=== PATIENT | female | born 2000 | race Asian ===

== ENCOUNTER 2024-11-18 09:14 | Outpatient (AMB) | payer MEDICAID, SELFPAY ==
[2024-11-18 09:29] VITALS: BP 123/85; PULSE 88; RESP 18; TEMP 36.7; O2SAT 98; BMI 29.5
--- NOTE | 2024-11-18 09:29 | OBCLNT_ITS ---
Vital Signs 11/18/24 09:29 Height 1.57 m Height Method Stated Weight 73.085 kg Weight Measurement Method Standing Scale BMI 29.5 BP 123/85 H Blood Pressure Source Automatic Cuff Blood Pressure Location Left Upper Arm Position Sitting Respiration 18 Pulse 88 Pulse Source Monitor Temp 98.0 F Temp Source Temporal Artery Scan Pulse Oximetry (%) 98 Oxygen Delivery Method Room Air Allergies/Home Meds Allergies & Medications Allergies ibuprofen (From Motrin) Allergy (Verified 11/18/24 09:30) Medication Reconciliation vit no.95-ferrous fumarate 28 mg-folic acid 800 mcg tablet () 1 tab PO DAILY 08/02/22 [History Confirmed 11/18/24] PNV 153-FA 400 mcg-om3 35 mg-dha 25 mg-epa 5 mg-fish oil chew tablet ( Gummies) 1 tab PO QDAY 90 days #90 tabs 11/18/24 [Rx] Intake Visit Data Collection New Patient or Established: Established Patient (seen at [facility] within 3 years) Reason for Visit:: Chief Complaint First visit for , unsure of last menstrual period and gestational age Do You Feel Safe at Home: Yes Authorities Contacted: N/A PCP or OBGYN visit in last 3 months: Yes Last menstrual period: 06/22/24 Pain Present Currently: No Smoking Status Smoking Status: Never smoker Questionnaires Covid-19 Vaccine Questionnaire Has patient been vacinated for Covid-19 Have you been vacinated for Covid-19: Yes PHQ-9 PHQ-2 Over the last 2 weeks, how often have you been bothered by any of the following problems? 1. Little interest or pleasure in doing things: not at all 2. Feeling down, depressed, or hopeless: not at all Total score: 0 Depression screen completed yes Social History Living Situation History Marital Status: Single Lives With: Children Housing: Apartment Tobacco History Smoking Status: Never smoker Second Hand Smoke Exposure: No Alcohol History Alcohol Intake: Never Alcohol Intake Frequency: holidays/special occasions only Domestic Abuse History Do You Feel Safe at Home: Yes Past Medical History Past Medical History Have you ever been diagnosed with any of the following: Neurological Problems Seizures: No Cardiology Problems Congestive Heart Failure: No Respiratory Problems Chronic Obstructive Pulmonary Disease (COPD): No Genital/Urinary Problems Renal Disease: No Endocrine Problems Diabetes Mellitus Type 1: No Diabetes Mellitus Type 2: No Blood Problems Anemia: Yes Clotting Problems: No Other Problems Hospitalization: No Falls: No Blood Transfusions: No Blood Transfusion Reaction: No Anesthesia Reactions: No Chicken Pox: No Clostridium Difficile: No Cancer: No History of Present Illness HPI Narrative History of Present Illness Smita Broussard, a patient with a history of three previous C-sections, presents for her first visit. She reports uncertainty about her last menstrual period (LMP) and gestational age due to at the time of conception. The patient initially visited [facility] for confirmation but was referred elsewhere for ongoing care. She subsequently paid for a private ultrasound, which estimated her due date as April 01, suggesting she is approximately 20 weeks . However, she notes confusion about her exact gestational age and due date. Smita reports a history of complications in her previous pregnancies. Her first resulted in an emergency due to distress. The second was delivered at 35 weeks due to growth restriction. Her third resulted in a at 37 weeks after she went into spontaneous labor. The patient mentions experiencing anemia in her previous pregnancies, stating, With him, I've always got low blood. She is currently still her youngest child. Smita expresses concern about potential complications, noting that all her children are kind of short, short-winded. No other -related symptoms or concerns were reported during this visit. Medical History - Anemia during previous Surgical History - section in 2022, emergency procedure due to distress - section at 35 weeks gestation due to growth restriction - section at 37 weeks gestation due to onset of labor Social History - Children: Has three daughters and currently with a boy - Substance Use: Currently - Living Situation: Lives with children Review of Systems Cardiovascular: Positive for low blood (anemia). Respiratory: Positive for being short-winded. OB Ultrasound OB Ultrasound Gestational sac assessment: Presence, location, size, shape: Laboratory, Imaging, and Diagnostic Test Results - Ultrasound (11/18/2024): - Gestational age: 19 weeks 5 days based on head circumference - Estimated weight: 316 grams - sex: Male - Femur length: Consistent with 20 weeks gestation OB Initial Visit OB Flowsheet OB Flowsheet Initial Weight: Not Recorded Date -?-?-?-?-?-?-?-?-?-?-?-?- EGA Weight Edema CTX Effacement BP Fundal ht Pres Dilation Effacement Station Visit Note Alb Glu FHR Mov 11/18/24 -?-?-?-?-?-?-?-?-?-?-?-?- 19w 5d 73.085 kg 123/85 OBI. - Obtain records from previous pregnanci es and deliveries - Discuss risks of short interval pregna ncy including PAS - Monitor closely for signs of placental abnormalities or uterine dehiscence - Refer to maternal- medicine specreyna dunlap for comprehensive ultrasound and consultation - Order labs including NIPT and confirmation of sex - Recommend weaning from t o reduce risk of growth restriction - Follow-up appointment in 2 weeks 145 Menstrual History Menstrual reliability: approximate (month known) Flow: heavy Menstrual regularity: irregular Monthly: No Age at menarche: 14 On control pills at conception: No Date of positive home test: 07/27/24 OB History : 4 Para: 2 Hx # Pregnancies: 1 Hx Total # of Abortions (Spontaneous & Elective): 0 # of Living Children: 3 Delivery History 1st : Child's name: Clint date: 09/13/21 sex: female Gestational age at delivery (weeks): 39 Delivery type: weight (lbs): 6000 g Delivery complications: emergency c/s due to distress History of depression before or after : No 2nd : Child's name: Gayathri date: 09/19/22 Gestational age at delivery (weeks): 35 Delivery type: weight (lbs): 4000 g Delivery complications: c/s due to no growth History of depression before or after : No 3rd : Child's name: Alexandr date: 03/08/24 sex: female Gestational age at delivery (weeks): 37 Delivery type: weight (lbs): 6000 g Delivery complications: no History of depression before or after : No Infection History & Risk Evaluation History of STDs: none HIV risk evaluation: low risk Hepatitis B risk evaluation: low risk Patient or partner has history of Genital Herpes: No Varicella/chicken pox status: immunized Genetic Screening & History Genetic Screening/Teratology Counseling - Includes patient, baby's father, or anyone in either family with: 1. Patient's age 35 years or older as of estimated date of delivery: No 2. Thalassemia (Thai, Swedish, Mediterranean, or Background); MCV less than 80: No 3. Neural Tube Defect (Meningomyelocele, Spina Bifida, or Anencephaly): No 4. Congenital Heart Defect: No 5. Down Syndrome: No 6. Ranjith-Sachs (Ashkenazi Restoration, Cajun, Slovak Addison): No 7. Leonor Disease (Ashkenazi Restoration): No 8. Familial Dysautonomia (Ashkenazi Restoration): No 9. Sickle Cell Disease or Trait (): No 10. Hemophilia or other blood disorders: No 11. Muscular Dystrophy: No 12. Cystic Fibrosis: No 13. Langdon's Chorea: No 14. Mental Retardation/Autism: No 15. Other inherited genetic or chromosomal disorder: No 16. Maternal Metabolic Disorder (EG,TYPE 1 Diabetes, PKU): No 17. Patient or baby's father had a child with defects not listed above: No 18. Recurrent loss or a stillbirth: No 19. Medications (including supplements, vitamins, herbs or otc drugs)/illicit/recreational drugs/alcohol since last menstrual period: No 20. Any other: No Infection History 1. Live with someone with TB or exposed to TB: No 2. Rash or viral illness since last menstrual period: No 3. Hepatitis B,C: No Other (see comments) Source: [employer] Exam General Limitations: no limitations General Appearance: alert, in no apparent distress, comfortable, cooperative, healthy appearing, well developed and well groomed Chest Chest inspection: Present normal inspection and symmetric chest wall rise Psych Psychiatric exam: Present normal affect and normal mood Skin Skin exam: Present warm, dry, intact and normal color Assessment & Plan Diagnosis / Problem List (1) Short interval between pregnancies affecting in third trimester, antepartum: Status: Acute (2) Limited care: Status: Acute (3) Previous section: Status: Acute (4) History of poor outcome: Status: Acute (5) Supervision of high risk , unspecified, second trimester: Status: Acute Plan Smita Broussard, , presents for initial visit at approximately 20 w eeks gestation with uncertain last menstrual period (LMP) and history of 3 prior sections. Intrauterine Assessment: Patient presents for initial visit with uncertain dating due to at time of conception. Previous ultrasound at outside facility suggested due date of April 01. Today's ultrasound measurements indicate gestational age of 19 weeks 5 days based on head circumference, with femur length consistent with 20 weeks. Estimated due date calculated as April 09, 2025, with backdated LMP of July 03, 2024. anatomy survey reveals male fetus with estimated weight of 316 grams. Plan: - Refer to maternal- medicine specialist for comprehensive ultrasound and consultation - Order labs including confirmation of sex - Recommend weaning from to reduce risk of growth restriction - Follow-up appointment in 2 weeks History of 3 prior sections Assessment: Patient has history of 3 prior sections. First was an emergency due to distress. Second was performed at 35 weeks due to growth restriction. Third was performed at 37 weeks when patient presented in labor. This occurs after a short interval since last delivery in 2022. Plan: - Obtain records from previous pregnancies and deliveries - Discuss risks and benefits of repeat section versus trial of labor after (TOLAC) - Monitor closely for signs of placental abnormalities or uterine dehiscence History of anemia in Assessment: Patient reports history of anemia in previous pregnancies. Plan: - Include complete blood count (CBC) in labs - Assess need for iron supplementation based on lab results Office Procedures OB Clinic LOC & Office Proc's Nursing/Assessment Patient Status: Established Patient OB Clinic Nursing Assessment: Medication Reconciliation, Update PMH in EMR and Vital Signs OB Clinic Coordination of Care: Complex Care and Chronic Disease 1-5, Consent,records obtained, informed consent, Education Simp Pt/Fam, Lab and Imaging orders and Staff clarify orders Established Patient Charge Established Patient Point Assignment: 100 Established Patient Point Charge: EP Level 3 (80-115) Bedside Ultrasounds US Transabdominal >14 weeks at bedside: Yes
== END 2024-11-18 10:03 | disposition home or self-care (01) ==
LOC: HODSOBC 09:14
PROVIDERS: Supervising Provider Obstetrics & Gynecology; Visit Provider Obstetrics & Gynecology
DX: O09.32 Supervision of pregnancy with insufficient antenatal care, second trimester (principal); Z3A.19 19 weeks gestation of pregnancy; O09.892 Supervision of other high risk pregnancies, second trimester; O09.292 Supervision of pregnancy with other poor reproductive or obstetric history, second trimester; O34.219 Maternal care for unspecified type scar from previous cesarean delivery; Z87.59 Personal history of other complications of pregnancy, childbirth and the puerperium
CPT/HCPCS: 76805; 99213; G0463

== ENCOUNTER 2024-12-14 10:04 | Outpatient (AMB) | payer MEDICAID, SELFPAY ==
--- NOTE | 2024-12-14 10:29 | OBCLNT_ITS ---
Vital Signs 12/14/24 10:33 Height 1.57 m Height Method Stated Weight 74.899 kg Weight Measurement Method Standing Scale BMI 30.4 BP 124/83 Blood Pressure Source Automatic Cuff Blood Pressure Location Right Upper Arm Position Sitting Respiration 18 Pulse 98 Pulse Source Monitor Temp 97.8 F Temp Source Oral Pulse Oximetry (%) 97 Oxygen Delivery Method Room Air Allergies/Home Meds Allergies & Medications Allergies ibuprofen (From Motrin) Allergy (Verified 12/14/24 10:34) Medication Reconciliation vit no.95-ferrous fumarate 28 mg-folic acid 800 mcg tablet () 1 tab PO DAILY 08/02/22 [History Confirmed 11/18/24] PNV 153-FA 400 mcg-om3 35 mg-dha 25 mg-epa 5 mg-fish oil chew tablet ( Gummies) 1 tab PO QDAY 90 days #90 tabs 11/18/24 [Rx Confirmed 12/14/24] ferrous sulfate 325 mg (65 mg iron) tablet 325 mg PO BID 90 days #180 tabs 12/14/24 [Rx] Intake Visit Data Collection New Patient or Established: Established Patient (seen at [facility] within 3 years) Reason for Visit:: - Routine visit at 23 weeks and 3 days gestation Seen by Clinical Staff ONLY (RN/MA): No Drain Layer Required: No Do You Feel Safe at Home: Yes Authorities Contacted: N/A PCP or OBGYN visit in last 3 months: Yes Hx Now: Yes Are you currently on any form of Control: No Pain Present Currently: No Pain Scale Used: Irwin-Pate/Numerical Pain scale:: 0 Smoking Status Smoking Status: Never smoker Questionnaires Covid-19 Vaccine Questionnaire Has patient been vacinated for Covid-19 Have you been vacinated for Covid-19: No PHQ-9 PHQ-2 Over the last 2 weeks, how often have you been bothered by any of the following problems? 1. Little interest or pleasure in doing things: not at all 2. Feeling down, depressed, or hopeless: not at all Total score: 0 PHQ-9 3. Trouble falling or staying asleep, or sleeping too much: Not at all 4. Feeling tired or having little energy: Not at all 5. Poor appetite or overeating: Not at all 6. Feeling bad about yourself - or that you are a failure or have let yourself or your family down: Not at all 7. Trouble concentrating on things, such as reading the newspaper or watching television: Not at all 8. Moving or speaking so slowly that other people could have noticed? - Or the opposite - being so fidgety or restless that you have been moving around a lot more than usual: not at all 9. Thoughts that you would be better off or of hurting yourself in some way: Not at all Total score: 0 Source: Developed by Drs. Durga Brand, Luh Barrios, Carl Mckeon and colleagues, with an educational evonne from [employer]. 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 - Relevant obstetrical history: - History of twins - Short interval from last - 3 previous C-sections: - 2022 due to distress - At 35 weeks due to growth restrictions - At 37 weeks due to labor/PROM - First visit was at 19 weeks and 5 days - Slightly anemic, requiring iron supplementation No contractions/ LOF/VB, reports good FM No REZA/VC/RUQ/Epig pain Care OB Visit Log OB Flowsheet Initial Weight: Not Recorded Date -?-?-?-?-?-?-?-?-?-?-?-?- EGA Weight BP Alb Glu CTX Pres Fundal ht FHR Mov Dilation Station Effacement Hx Notes Visit Note 11/18/24 -?-?-?-?-?-?-?-?-?-?-?-?- 19w 5d 73.085 kg 123/85 145 OBI. - Obtain records from previous pregnanci es and deliveries - Discuss risks of short interval pregna ncy including PAS - Monitor closely for signs of placental abnormalities or uterine dehiscence - Refer to maternal- medicine speci alist for comprehensive ultrasound and consultation - Order labs including NIPT and confirmation of sex - Recommend weaning from t o reduce risk of growth restriction - Follow-up appointment in 2 weeks 12/14/24 -?-?-?-?-?-?-?-?-?-?-?-?- 23w 3d 74.899 kg 124/83 150 Smita Broussard, at 23w3d, presents for routine care. History includes 3 prior C-sections (2022 for distress, at 35w for FGR, and at 37w for labor/PROM), short interval , prior twin gestation, and current mild anemia. First visit was at 19w5d. No current complaints. Denies CTX/LOF/VB. Reports good movement. Hgb 10.3, Hct 34.1. UA shows cloudy urine with occult blood and WBC esterase, but no nitrites. Plan: Provide lab order for 1-hour glucose scr een and genetic testing including sex Schedule follow-up visit in 4 weeks Refer to [facility] for formal ul trasound and due date confirmation Prescribe iron supplementation for anemi a Instruct patient to create [facility] zoe l or request emailed results from lab Routine education provided, damaso giles labor precautions, diet, and hydration SÁNCHEZ Calculator Estimated Delivery Date Method Current WG Current Estimate 04/09/25 LMP (Certain) 24w 4d Other Estimates 04/09/25 Ultrasound #1 24w 4d Exam General General Appearance: alert, in no apparent distress and healthy appearing Head Head exam: atraumatic Neck Neck exam: Present normal inspection and trachea midline Chest Chest inspection: Present normal inspection and symmetric chest wall rise External exam: Present normal external exam; Absent tenderness Neuro Neurological exam: Present oriented X3 Psych Psychiatric exam: Present normal affect and normal mood Office Procedures OB Clinic LOC & Office Proc's Nursing/Assessment Patient Status: Established Patient OB Clinic Nursing Assessment: Medication Reconciliation, Update PMH in EMR and Vital Signs OB Clinic Coordination of Care: Complex Care and Chronic Disease 1-5, Consent,records obtained, informed consent, Education Simp Pt/Fam, Lab and Imaging orders, Results/Orders obtained and Staff clarify orders Special Needs: Heart tones Miscellaneous Interventions: Blood/Urine Collection Established Patient Charge Established Patient Point Assignment: 165 Established Patient Point Charge: EP Level 5 (160-above) Assessment & Plan Diagnosis / Problem List (1) Short interval between pregnancies affecting in third trimester, antepartum: Status: Acute (2) History of poor outcome: Status: Acute (3) Supervision of high risk , unspecified, second trimester: Status: Acute (4) Anemia affecting in second trimester: Status: Acute Plan Problem List - , 23 weeks and 3 days gestation - 4, para 2-1-0-1-1-3 - History of multiple sections - History of labor - History of premature rupture of membranes - History of growth restriction - Iron deficiency anemia Assessment - 4 para [id number] at 23 weeks and 3 days gestation - History of 3 previous C-sections (2022 due to distress, 35 weeks due to growth restrictions, 37 weeks due to labor/PROM) - Short interval - Mild anemia (Hemoglobin 10.3, hematocrit 34.1) - Urinalysis showing occult blood with WBC esterase in cloudy appearance, no nitrites - History of twin Plan - Provide lab slip for glucose test (diabetes screening) and genetic testing, including gender determination - Schedule follow-up appointment in 4 weeks - Refer to [facility] for official ultrasound to confirm due date - Prescribe iron tablets for anemia - Instruct patient to create [employer] portal for viewing results or request lab to email results Educated the patient on labor signs, including regular contractions, lower back pain, and changes in vaginal discharge. Advised avoiding heavy lifting and getting adequate rest. Instructed to contact the office immediately if any signs occur. Discussed the importance of a balanced diet rich in folic acid, iron, and calcium, and provided a list of recommended and to-avoid foods. Emphasized avoiding high-sugar foods to reduce gestational diabetes risk. Encouraged hydration and frequent, small meals for energy..
[2024-12-14 10:33] VITALS: BP 124/83; PULSE 98; RESP 18; TEMP 36.6; O2SAT 97; BMI 30.4
[2024-12-14 16:06] LABS: Bilirubin,Urine Clinitek Negative (Negative); Blood,Urine Clinitek 2+ (Negative); Glucose, Urine Clinitek Negative (Negative); Ketones,Urine Clinitek Negative (Negative); Leukocyte Esterase,Urine Clin 1+ (Negative); Nitrite,Urine Clinitek Negative (Negative); PH,Urine Clinitek 6.5 (5.0-7.0); Protein,Urine Clinitek Negative (Neg - Trace); Specific Gravity,Urine Clin >= 1.030 (1.001-1.030); Urobilinogen,Urine Clinitek 0.2 mg/dL (0.0-1.0)
== END 2024-12-14 11:01 | disposition home or self-care (01) ==
LOC: HODSOBC 10:04
PROVIDERS: Advanced Practice Midwife; Supervising Provider Obstetrics & Gynecology; Visit Provider Obstetrics & Gynecology
DX: O09.212 Supervision of pregnancy with history of pre-term labor, second trimester (principal); O09.892 Supervision of other high risk pregnancies, second trimester; O09.292 Supervision of pregnancy with other poor reproductive or obstetric history, second trimester; O34.219 Maternal care for unspecified type scar from previous cesarean delivery; O99.012 Anemia complicating pregnancy, second trimester; D50.9 Iron deficiency anemia, unspecified; Z3A.23 23 weeks gestation of pregnancy
CPT/HCPCS: 81001; 99215; G0463

== ENCOUNTER 2025-01-11 15:01 | Outpatient (AMB) | payer MEDICAID, SELFPAY ==
--- NOTE | 2025-01-11 15:21 | OBCLNT_ITS ---
Allergies/Home Meds Allergies & Medications Allergies ibuprofen (From Motrin) Allergy (Verified 01/11/25 15:30) Medication Reconciliation vit no.95-ferrous fumarate 28 mg-folic acid 800 mcg tablet () 1 tab PO DAILY 08/02/22 [History Confirmed 01/11/25] PNV 153-FA 400 mcg-om3 35 mg-dha 25 mg-epa 5 mg-fish oil chew tablet ( Gummies) 1 tab PO QDAY 90 days #90 tabs 11/18/24 [Rx Confirmed 01/11/25] ferrous sulfate 325 mg (65 mg iron) tablet 325 mg PO BID 90 days #180 tabs 12/14/24 [Rx Confirmed 01/11/25] Intake Visit Data Collection New Patient or Established: Established Patient (seen at [facility] within 3 years) Reason for Visit:: OBC Seen by Clinical Staff ONLY (RN/MA): No Apartment Leasing 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 1. Little interest or pleasure in doing things: not at all 2. Feeling down, depressed, or hopeless: not at all Total score: 0 PHQ-9 3. Trouble falling or staying asleep, or sleeping too much: Not at all 4. Feeling tired or having little energy: Not at all 5. Poor appetite or overeating: Not at all 6. Feeling bad about yourself - or that you are a failure or have let yourself or your family down: Not at all 7. Trouble concentrating on things, such as reading the newspaper or watching television: Not at all 8. Moving or speaking so slowly that other people could have noticed? - Or the opposite - being so fidgety or restless that you have been moving around a lot more than usual: not at all 9. Thoughts that you would be better off or of hurting yourself in some way: Not at all Total score: 0 If you checked off any problems, how difficult have these problems made it for you to do your work, take care of things at home, or get along with other people?: not difficult at all Source: Developed by Drs. Durga Brand, Luh Barrios, Carl Mckeon and colleagues, with an educational evonne from [employer]. 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 Patient has a history of prior delivery. No contractions, LOF, VB and reports good FM. Denies REZA, VC, and epigastric pain. - Smita Broussard is a 4 para 2103 presenting for routine care at 27 weeks and 3 days gestation, with an estimated due date of April 09, 2025. - Last visit was 4 weeks ago, patient reported doing well at that time. - Relevant medical history: - History of twin gestation in the past - Late presentation to care for current (at 19 weeks) - Patient reports: - No new symptoms or concerns mentioned - Appropriate weight gain for gestational age - Adherence to care plan: - Completed genetic testing as ordered - Awaiting results of one-hour glucose tolerance test - Upcoming growth ultrasound scheduled for January 28, 2025 - Patient expressed concern about growth, referencing a previous where the baby wasn't growing properly Care OB Visit Log OB Flowsheet Initial Weight: Not Recorded Date -?-?-?-?-?-?-?-?-?-?-?-?- EGA Weight BP Alb Glu CTX Pres Fundal ht FHR Mov Dilation Station Effacement Hx Notes Visit Note 11/18/24 -?-?-?-?-?-?-?-?-?-?-?-?- 19w 5d 73.085 kg 123/85 145 OBI. - Obtain records from previous pregnanci es and deliveries - Discuss risks of short interval pregna ncy including PAS - Monitor closely for signs of placental abnormalities or uterine dehiscence - Refer to maternal- medicine speci ali for comprehensive ultrasound and consultation - Order labs including NIPT and confirmation of sex - Recommend weaning from t o reduce risk of growth restriction - Follow-up appointment in 2 weeks 12/14/24 -?-?-?-?-?-?-?-?-?-?-?-?- 23w 3d 74.899 kg 124/83 150 Smita Broussard, at 23w3d, presents for routine care. History includes 3 prior C-sections (2022 for distress, at 35w for FGR, and at 37w for labor/PROM), short interval , prior twin gestation, and current mild anemia. First visit was at 19w5d. No current complaints. Denies CTX/LOF/VB. Reports good movement. Hgb 10.3, Hct 34.1. UA shows cloudy urine with occult blood and WBC esterase, but no nitrites. Plan: Provide lab order for 1-hour glucose scr een and genetic testing including sex Schedule follow-up visit in 4 weeks Refer to [facility] for formal ul trasound and due date confirmation Prescribe iron supplementation for anemi a Instruct patient to create [facility] zoe l or request emailed results from lab Routine education provided, inc luding labor precautions, diet, and hydration 01/11/25 -?-?-?--?-?-?-?-?-?-?-?-?- 27w 3d 155 @27w3d, hx of twin gestation, late to care (19w), prior C/S, concerned for growth. Genetic screen neg, fetus male. Awaiting 1hr GTT and growth US 01/28. Plan: f/u in 4wks, monitor growth q4wks, plan C/S pending US findings. SÁNCHEZ Calculator Estimated Delivery Date Method Current WG Current Estimate 04/09/25 LMP (Certain) 27w 5d Other Estimates 04/09/25 Ultrasound #1 27w 5d Office Procedures OB Clinic LOC & Office Proc's Nursing/Assessment Patient Status: Established Patient OB Clinic Nursing Assessment: Medication Reconciliation, Update PMH in EMR and Vital Signs OB Clinic Coordination of Care: Education Complex Pt/Fam, Consent,records obtained, informed consent, Lab and Imaging orders and Staff clarify orders Special Needs: Heart tones Established Patient Charge Established Patient Point Assignment: 110 Established Patient Point Charge: EP Level 3 (80-115) Assessment & Plan Diagnosis / Problem List (1) Anemia affecting in second trimester: Status: Acute (2) Supervision of high risk , unspecified, second trimester: Status: Acute (3) History of poor outcome: Status: Acute (4) Short interval between pregnancies affecting in third trimester, antepartum: Status: Acute Plan Problem List - Twin gestation (history) - , third trimester - Late presentation to care - Previous section Assessment at 27 weeks and 3 days gestation with SÁNCHEZ 04/09/2025. Patient presented late for care at 19 weeks. History of twin gestation in the past. Recent genetic testing results negative for trisomies, fetus identified as male. One-hour glucose tolerance test ordered at last visit, results pending. Awaiting biometric ultrasound to assess growth and placental position, particularly important due to patient's history of growth issues in previous . Patient inquired about weight gain, which is reported as appropriate for gestational age. Previous section noted, with fresh scar potentially causing discomfort. Plan - Schedule follow-up appointment in 4 weeks (around February 02) - Await results of pending one-hour glucose tolerance test - Await bariatric ultrasound scheduled for January 28 to confirm placental position and rule out placenta previa - Plan for after ultrasound results are reviewed - Continue monitoring growth through ultrasounds every 4 weeks 1. Progress Reviewed gestational age, growth, and heart rate. Planned frequent visits (every 2 weeks until 36 weeks, then weekly). 2. Instructed patient to monitor movements and report decreases immediately. 3. Testing Counseled on routine third-trimester labs per guidelines. Discussed potential need for ultrasound or monitoring based on risk factors. 4. Preeclampsia Precaution Educated on preeclampsia signs: severe headache, vision changes, right upper quadrant pain, sudden swelling. Advised urgent reporting of symptoms and discussed blood pressure monitoring if high risk. 5. Labor Precautions Reviewed labor signs: regular contractions, pelvic pressure, back pain, bleeding, or fluid leakage. Instructed to seek immediate care for these symptoms. 6. Lifestyle and Delivery Preparation Reinforced vitamins, nutrition, and safe activity. Discussed plan, pain management, and . Advised on labor preparation (e.g., hospital bag) and expectations. 7. Psychosocial Support Assessed emotional well-being and offered resources for mental health or parenting support.
== END 2025-01-11 15:46 | disposition home or self-care (01) ==
LOC: HODSOBC 15:01
PROVIDERS: Supervising Provider Obstetrics & Gynecology; Visit Provider Obstetrics & Gynecology
DX: O09.292 Supervision of pregnancy with other poor reproductive or obstetric history, second trimester (principal); O34.219 Maternal care for unspecified type scar from previous cesarean delivery; O09.892 Supervision of other high risk pregnancies, second trimester; O99.012 Anemia complicating pregnancy, second trimester; O09.212 Supervision of pregnancy with history of pre-term labor, second trimester; Z3A.27 27 weeks gestation of pregnancy; Z87.59 Personal history of other complications of pregnancy, childbirth and the puerperium
CPT/HCPCS: 99213; G0463

== ENCOUNTER 2025-01-29 22:58 | Observation (INO) | payer MEDICAID, SELFPAY ==
[2025-01-29 22:04] VITALS: BMI 70.8
[2025-01-29 22:27] VITALS: BP 132/85; BP 136/90; PULSE 97; RESP 20; TEMP 37.1; O2SAT 95
--- NOTE | 2025-01-29 22:46 | EDNOTE_ITS ---
<Statement entered by Jenifer Sarmiento MD - 01/29/25 23:26> As co-signing physician, I was present and available for consult prn. I concur with the plan and care as documented by the midlevel provider. ED Headache RME/HPI General Chief Complaint: Headache Stated Complaint: 30 WKS PREG HAS HEADACHE Time Seen by Provider: 01/29/25 22:37 Arrival date/time: 01/29/25 22:03 24F at approximately 30 weeks and with no significant PMH presents with 1 week of worsening REZA and dizziness. Patient denies fall/trauma, N/V, and AMS, as well as URI symptoms. Patient has taken anything for it. Limitations: no limitations Related Data Home Medications ?Medication ?Instructions ?Recorded ?Confirmed vit no.95-ferrous 1 tab PO DAILY 08/02/2204/29 fumarate 28 mg-folic acid 800 mcg tablet () Previous Rx's ?Medication ?Instructions ?Recorded PNV 153-FA 400 mcg-om3 35 mg-dha 1 tab PO QDAY 90 days #90 tabs 11/18/24 25 mg-epa 5 mg-fish oil chew tablet ( Gummies) ferrous sulfate 325 mg (65 mg 325 mg PO BID 90 days #1 80 tabs 12/14/24 iron) tablet sumatriptan succinate 100 mg 100 mg PO Q2H 30 days #20 tabs 01/26/25 tablet (Imitrex) Allergies Allergy/AdvReac Type Severity Reaction Status Date / Time ibuprofen (From Motrin) Allergy Verified 01/29/25 22:16 Review of Systems Review of Systems Systems Reviewed: All systems reviewed, normal except as documented Constitutional Constitutional: Reports system reviewed and no additional complaints, except as documented, Reports as per HPI, Denies fever(s) and Reports headache(s) ENT Ears, Nose, Mouth, and Throat: Reports as per HPI, Denies disequilibrium, Reports headache(s) and Reports vertigo Cardiovascular Cardiovascular: Reports system reviewed and no additional complaints, except as documented, Denies chest pain and Denies dyspnea Respiratory Respiratory: Reports system reviewed and no additional complaints, except as documented, Denies cough and Denies dyspnea Gastrointestinal Gastrointestinal: Reports system reviewed and no additional complaints, except as documented, Denies abdominal pain, Denies nausea and Denies vomiting Neurologic Neurologic: Reports system reviewed and no additional complaints, except as documented, Denies confusion, Denies disequilibrium, Reports headache(s) and Reports vertigo Psychiatric Psychiatric: Denies confusion Past Medical History Past Medical History NEUROLOGIC: Negative Neurological Disorders or Seizures CARDIAC: Negative Cardiac Disorders or Congestive Heart Failure RESPIRATORY: Negative Chronic Obstructive Pulmonary Disease (COPD) GASTROINTESTINAL: Negative Gastrointestinal Disorders GENITOURINARY: Negative Genitourinary Disorders or Renal Disease MUSCULOSKELETAL: Negative Musculoskeletal Disorders ENDOCRINE: Negative Endocrine Disorders, Diabetes Mellitus Type 1 or Diabetes Mellitus Type 2 HEMATOLOGIC: Positive Blood Disorders and Anemia; Negative Clotting Problems OTHER HISTORY: Negative Hospitalization, Autoimmune Disease, Falls, Blood Transfusions, Blood Transfusion Reaction, Anesthesia Reactions, Chicken Pox, Clostridium Difficile or Cancer Family History FAMILY HISTORY: Negative Family Psychiatric Problems, Family Respiratory Diso rders, Family Cardiac Disorders, Family Gastrointestinal Problems, Family Cancer, Family Surgery or Family Anesthesia Reaction Social History SMOKING STATUS: Never smoker SECOND HAND EXPOSURE: No ED Exam General Limitations: Present no limitations General appearance: Present alert and in no apparent distress Head Head exam: Present atraumatic Eye Eye exam: Present normal appearance, PERRL and EOMI ENT ENT exam: Present normal exam, normal oropharynx and mucous membranes moist Neck Neck exam: Present normal inspection, full ROM and trachea midline Chest Chest inspection: Present normal inspection and symmetric chest wall rise Respiratory Respiratory exam: Present normal lung sounds bilaterally Cardiovascular Cardiovascular exam: Present regular rate, normal rhythm and normal heart sounds Abdominal Exam Abdominal exam: Present soft and normal bowel sounds Extremities Exam Extremities exam: Present normal inspection and full ROM Back Exam Back exam: Present normal inspection and full ROM Neurological Exam Neurological exam: Present alert, oriented X3 and CN II-XII intact Psychiatric Psychiatric exam: Present normal affect and normal mood Skin Skin exam: Present warm, dry, intact and normal color Course Quality Measures none Vital Signs Vital signs: Vital Signs Temperature 98.8 F 01/29/25 22:27 Pulse Rate 97 01/29/25 22:27 Respiratory Rate 20 01/29/25 22:27 Blood Pressure 136/90 H 01/29/25 22:27 Pulse Oximetry (%) 95 01/29/25 22:27 Oxygen Delivery Method Room Air 01/29/25 22:27 O2 at 95% on RA and WNLs Headache MDM Narrative MDM Narrative:: 24F at approximately 30 weeks and with no significant PMH presents with 1 week of worsening REZA and dizziness. Patient denies fall/trauma, N/V, and AMS, as well as URI symptoms. Patient has taken anything for it. Physical exam reveals normal pupil response and EOM. CN II-XII grossly intact. Gait normal. Speech normal. Normal WOB. No sinus tenderness. Patient is afebrile, calm, and alert. BP mildly elevated. Cleared to OB. Patient data External records reviewed:: [facility] previous records Clinical information provided by:: patient Social determinants that could affect healthcare access:: none Patient has the following chronic illnesses:: none How is presenting disease/condition affected by chronic disease/condition?: no chronic disease Evaluation data The following diagnostics were reviewed and interpreted by me:: other (specify) (none) Lab and/or radiology exams considered but not ordered:: not ordered Interpretation Summary: n/a Medications / Prescriptions Medications or Prescriptions considered but not ordered:: not ordered Medication administrations:: n/a Consultations Consultation(s) initiated? (list below): No Diagnosis Differential diagnosis headache: migraine, tension headache, subarachnoid hemorrhage, headache, meningitis, sinusitis and postconcussion syndrome Most likely diagnosis given after review of the tests above:: REZA Admission Indicated Admission indicated?: not indicated Admission Request Was there a request for admission?: No Disposition Plan Disposition Plan: Discharge Discharge Attestation Discharge Attestation: The patient and all family members were given an opportunity to ask questions and understood the discharge instructions. Discharge instructions specifically effects, indications for sooner follow up or return to the emergency department, and the expected course of current diagnosis. Patient condition: Stable Discharge Plan Plan Patient Disposition: HOME (Self Care) Discharge Disposition comment: Stable Prescriptions/Referrals Prescriptions/Med Rec: No Action Gummies 400 mcg-35 mg- 25 mg-5 mg tablet,chewable 1 tab PO QDAY 90 Days Qty: 90 4RF ferrous sulfate 325 mg (65 mg iron) tablet 325 mg PO BID 90 Days Qty: 180 2RF sumatriptan succinate [Imitrex] 100 mg tablet 100 mg PO Q2H 30 Days Qty: 20 0RF Rx Instructions: Take 1 tablet, repeat after 2 hours if no relief of headache, do not exceed 2 tablets in 24 hours PNV cmb#95-ferrous fumarate-FA [] 28 mg iron- 800 mcg tablet 1 tab PO DAILY Patient Comments: TAKE 1 TABLET BY MOUTH EVERY DAY FOR 30 DAYS Problem List Clinical Impression: Headache Patient/Caregiver Discharge Instructions Education Materials: Self-Care for Headaches Additional Instructions: Please follow-up with PCP within 24-48 hours and return immediately if symptoms worsen. Print Language: Khmer Stand Alone Forms: Patient Portal Info Letter PA/DAVID Supervising Physician THOMAS/DAVID Supervising Physician: Dr. Sarmiento
[2025-01-29 23:08] VITALS: BP 134/70; PULSE 95; RESP 18; RESP 98; TEMP 36.8
[2025-01-29 23:17] VITALS: BMI 31.9
[2025-01-29 23:35] VITALS: BP 128/70; PULSE 90
[2025-01-29 23:39] VITALS: BP 121/66; PULSE 95
[2025-01-29] MEDS: ACETAMINOPHEN 325 MG TABLET 650 MG PO (23:51)
[2025-01-30 00:10] VITALS: BP 114/64; PULSE 86
== END 2025-01-30 00:50 | disposition home or self-care (01) ==
LOC: S4SX 23:16
PROVIDERS: Admitting Provider Obstetrics & Gynecology; PCP Family Medicine; Visit Provider Obstetrics & Gynecology
DX: O26.893 Other specified pregnancy related conditions, third trimester (principal); R51.9 Headache, unspecified; R10.9 Unspecified abdominal pain; Z3A.30 30 weeks gestation of pregnancy
CPT/HCPCS: 59025; 59899; 99281; A9270

== ENCOUNTER 2025-02-02 13:01 | Outpatient (AMB) | payer MEDICAID, SELFPAY ==
[2025-02-02 13:06] VITALS: BP 116/76; PULSE 77; RESP 17; TEMP 526.1; TEMP 979; O2SAT 97; BMI 31.1
--- NOTE | 2025-02-02 13:06 | OBCLNT_ITS ---
Vital Signs 02/02/25 13:06 Height 1.55 m Height Method Stated Weight 74.843 kg Weight Measurement Method Standing Scale BMI 31.1 BP 116/76 Blood Pressure Source Automatic Cuff Blood Pressure Location Right Upper Arm Position Sitting Respiration 17 Pulse 77 Pulse Source Monitor Temp 979 F H Temp Source Temporal Artery Scan Pulse Oximetry (%) 97 Oxygen Delivery Method Room Air Allergies/Home Meds Allergies & Medications Allergies No Known Allergies Allergy (Verified 02/02/25 13:07) Medication Reconciliation vit no.95-ferrous fumarate 28 mg-folic acid 800 mcg tablet () 1 tab PO DAILY 08/02/22 [History Confirmed 02/02/25] PNV 153-FA 400 mcg-om3 35 mg-dha 25 mg-epa 5 mg-fish oil chew tablet ( Gummies) 1 tab PO QDAY 90 days #90 tabs 11/18/24 [Rx Confirmed 02/02/25] ferrous sulfate 325 mg (65 mg iron) tablet 325 mg PO BID 90 days #180 tabs 12/14/24 [Rx Confirmed 02/02/25] Intake Visit Data Collection New Patient or Established: Established Patient (seen at [facility] within 3 years) Reason for Visit:: OBC Seen by Clinical Staff ONLY (RN/MA): No Wax Specialist Required: No Do You Feel Safe at Home: Yes Authorities Contacted: N/A PCP or OBGYN visit in last 3 months: No Hx Now: Yes Are you currently on any form of Control: No Pain Present Currently: No Pain Scale Used: Irwin-Pate/Numerical Pain scale:: 0 Smoking Status Smoking Status: Never smoker Questionnaires Covid-19 Vaccine Questionnaire Has patient been vacinated for Covid-19 Have you been vacinated for Covid-19: No PHQ-9 PHQ-2 Over the last 2 weeks, how often have you been bothered by any of the following problems? 1. Little interest or pleasure in doing things: not at all 2. Feeling down, depressed, or hopeless: not at all Total score: 0 PHQ-9 3. Trouble falling or staying asleep, or sleeping too much: Not at all 4. Feeling tired or having little energy: Not at all 5. Poor appetite or overeating: Not at all 6. Feeling bad about yourself - or that you are a failure or have let yourself or your family down: Not at all 7. Trouble concentrating on things, such as reading the newspaper or watching television: Not at all 8. Moving or speaking so slowly that other people could have noticed? - Or the opposite - being so fidgety or restless that you have been moving around a lot more than usual: not at all 9. Thoughts that you would be better off or of hurting yourself in some way: Not at all Total score: 0 If you checked off any problems, how difficult have these problems made it for you to do your work, take care of things at home, or get along with other people?: not difficult at all Source: Developed by Drs. Durga Brand, Luh Barrios, Carl Mckeon and colleagues, with an educational evonne from [employer]. 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 Patient has a history of prior delivery. No contractions, LOF, VB and reports good FM. Denies REZA, VC, and epigastric pain. - Smita Broussard is a woman presenting for routine care at 30 weeks and 4 days gestation. - 4, Para 3, with this being her second section. - Short interval , having had a baby last year. - Due date: April 09, 2025 - Scheduled : April 02, 2025 at 7:30 AM - Recent M ultrasound on January 29, 2025: - Normal anatomy survey - Estimated weight: 1614 grams - Cervix: 4.97 centimeters without funneling - Anterior placenta, no previa, cephalic presentation - Patient experienced discomfort last week, no further details provided - Fetus is male - Genetic testing negative Care OB Visit Log OB Flowsheet Initial Weight: Not Recorded Date -?-?-?-?-?-?-?-?-?-?-?-?- EGA Weight BP Alb Glu CTX Pres Fundal ht FHR Mov Dilation Station Effacement Hx Notes Visit Note 11/18/24 -?-?-?-?-?-?-?-?-?-?-?-?- 19w 5d 73.085 kg 123/85 145 OBI. - Obtain records from previous pregnanci es and deliveries - Discuss risks of short interval pregna ncy including PAS - Monitor closely for signs of placental abnormalities or uterine dehiscence - Refer to maternal- medicine speci fabi for comprehensive ultrasound and consultation - Order labs including NIPT and confirmation of sex - Recommend weaning from t o reduce risk of growth restriction - Follow-up appointment in 2 weeks 12/14/24 -?-?-?-?-?-?-?-?-?-?-?-?- 23w 3d 74.899 kg 124/83 150 Smita Broussard, at 23w3d, presents for routine care. History includes 3 prior C-sections (2022 for distress, at 35w for FGR, and at 37w for labor/PROM), short interval , prior twin gestation, and current mild anemia. First visit was at 19w5d. No current complaints. Denies CTX/LOF/VB. Reports good movement. Hgb 10.3, Hct 34.1. UA shows cloudy urine with occult blood and WBC esterase, but no nitrites. Plan: Provide lab order for 1-hour glucose scr een and genetic testing including sex Schedule follow-up visit in 4 weeks Refer to [facility]?s for formal ul trasound and due date confirmation Prescribe iron supplementation for anemi a Instruct patient to create [facility] zoe l or request emailed results from lab Routine education provided, inc luding labor precautions, diet, and hydration 01/11/25 -?-?-?-?-?-?-?-?-?-?-?-?- 27w 3d 155 @27w3d, hx of twin gestation, late to care (19w), prior C/S, concerned for growth. Genetic screen neg, fetus male. Awaiting 1hr GTT and growth US 01/28. Plan: f/u in 4wks, monitor growth q4wks, plan C/S pending US findings. 02/02/25 -?-?-?-?-?-?-?-?-?-?-?-?- 30w 4d 74.843 kg 116/76 absent cephalic 31 145 active No CTX/LOF/VB, re ports good FM. Cephalic presentation. Recent MFM U/S reassuring: EFW 1614g, cervix 4.97cm, anterior placenta, no previa. C/S scheduled 04/02 at 0730. GTT negative. FU in 2 wks; chana bryant GBS. SÁNCHEZ Calculator Estimated Delivery Date Method Current WG Current Estimate 04/09/25 LMP (Certain) 30w 4d Other Estimates 04/09/25 Ultrasound #1 30w 4d Office Procedures OB Clinic LOC & Office Proc's Nursing/Assessment Patient Status: Established Patient OB Clinic Nursing Assessment: Medication Reconciliation, Update PMH in EMR and Vital Signs OB Clinic Coordination of Care: Complex Care and Chronic Disease 1-5, Education Complex Pt/Fam, Consent,records obtained, informed consent and Staff clarify orders Special Needs: Heart tones Established Patient Charge Established Patient Point Assignment: 120 Established Patient Point Charge: EP Level 4 (120-155) Assessment & Plan Diagnosis / Problem List (1) Headache: Status: Acute (2) Short interval between pregnancies affecting in third trimester, antepartum: Status: Acute Plan Problem List - , 30 weeks and 4 days gestation - Short interval - Scheduled repeat section - Anterior placenta - Cephalic presentation Assessment at 30 weeks 4 days gestation, presenting for routine care. Scheduled for repeat on April 02, 2025. Recent MFM ultrasound showed normal anatomy survey, EFW 1614 grams, cervical length 4.97 cm without funneling, and anterior placenta without previa. Cephalic presentation noted. Patient counseled about risk of placenta accreta spectrum and IgG due to short interval . Glucose challenge test result 108, negative for gestational diabetes. NST today was reassuring. Male fetus with negative genetic testing. growth noted to be one week ahead of dates. Patient reported recent discomfort. GBS status pending. Plan - Follow up in 2 weeks for routine care - Complete anatomy survey at 6-week follow-up with MFM due to suboptimal visualization of some structures - Continue monitoring appointments and follow-ups at [facility] - Scheduled for April 02 at 7:30 AM - Await results of pending GBS test - Prescription for vitamins (Violeta-Doni) resent to pharmacy
== END 2025-02-02 13:35 | disposition home or self-care (01) ==
PROVIDERS: Supervising Provider Obstetrics & Gynecology; Visit Provider Obstetrics & Gynecology
DX: O09.293 Supervision of pregnancy with other poor reproductive or obstetric history, third trimester (principal); O34.219 Maternal care for unspecified type scar from previous cesarean delivery; O09.893 Supervision of other high risk pregnancies, third trimester; O09.213 Supervision of pregnancy with history of pre-term labor, third trimester; O99.891 Other specified diseases and conditions complicating pregnancy; R51.9 Headache, unspecified; Z3A.30 30 weeks gestation of pregnancy; Z87.59 Personal history of other complications of pregnancy, childbirth and the puerperium
CPT/HCPCS: 99214; G0463

== ENCOUNTER 2025-03-09 13:14 | Outpatient (RCR) | payer MEDICAID, SELFPAY ==
--- NOTE | 2025-02-02 10:37 | XR_ITS ---
Examination: Biophysical profile, ultrasound Date and time of exam: February 02, 2025 1054 hours INDICATIONS: High risk , 3 prior C-sections Technique: Multiple transabdominal sonographic images of the pelvis abdomen obtained. Attention is directed to the breathing movement, gross body movement, amniotic fluid volume and tone. Findings: Amniotic fluid index 8.5 cm Total biophysical profile is 8 of 8. breathing movement is 2. Gross body movement is 2. tone is 2. Qualitative amniotic fluid volume is 2 Impression: Biophysical profile is 8 of 8.
[2025-02-02 11:08] VITALS: BP 116/74; PULSE 97; RESP 16; TEMP 36.1
--- NOTE | 2025-02-09 13:13 | XR_ITS ---
Examination: Biophysical profile, ultrasound Date and time of exam: February 09, 2025 1349 hours INDICATIONS: Diagnosis high risk Technique: Multiple transabdominal sonographic images of the pelvis abdomen obtained. Attention is directed to the breathing movement, gross body movement, amniotic fluid volume and tone. Findings: Amniotic fluid index 6.3 cm Total biophysical profile is 8 of 8. breathing movement is 2. Gross body movement is 2. tone is 2. Qualitative amniotic fluid volume is 2 Impression: Biophysical profile is 8 of 8.
[2025-02-09 14:10] VITALS: BP 106/71; PULSE 93; RESP 16; TEMP 36.8
--- NOTE | 2025-02-16 13:29 | XR_ITS ---
Examination: Biophysical profile, ultrasound Date and time of exam: February 16, 2025 1338 hours INDICATIONS: Diagnosis high risk , 3 prior C-sections Technique: Multiple transabdominal sonographic images of the pelvis abdomen obtained. Attention is directed to the breathing movement, gross body movement, amniotic fluid volume and tone. Findings: Amniotic fluid index 7.3 cm Total biophysical profile is 8 of 8. breathing movement is 2. Gross body movement is 2. tone is 2. Qualitative amniotic fluid volume is 2 Impression: Biophysical profile is 8 of 8.
[2025-02-16 14:04] VITALS: BP 107/65; PULSE 122; RESP 16; TEMP 36.7
--- NOTE | 2025-02-23 13:19 | XR_ITS ---
Examination: Biophysical profile, ultrasound Date and time of exam: February 23, 2025 1347 hours INDICATIONS: Diagnosis high risk , 3 prior C-sections Technique: Multiple transabdominal sonographic images of the pelvis abdomen obtained. Attention is directed to the breathing movement, gross body movement, amniotic fluid volume and tone. Findings: Amniotic fluid index 8.2 cm Total biophysical profile is 8 of 8. breathing movement is 2. Gross body movement is 2. tone is 2. Qualitative amniotic fluid volume is 2 Impression: Biophysical profile is 8 of 8.
[2025-02-23 14:09] VITALS: BP 113/65; PULSE 85; RESP 16; TEMP 36.8
--- NOTE | 2025-03-02 13:19 | XR_ITS ---
Examination: Biophysical profile, ultrasound Date and time of exam: March 02, 2025 1357 hours INDICATIONS: Diagnosis high risk 3 prior C-sections Technique: Multiple transabdominal sonographic images of the pelvis abdomen obtained. Attention is directed to the breathing movement, gross body movement, amniotic fluid volume and tone. Findings: Amniotic fluid index 7.8 cm Total biophysical profile is 8 of 8. breathing movement is 2. Gross body movement is 2. tone is 2. Qualitative amniotic fluid volume is 2 Impression: Biophysical profile is 8 of 8.
[2025-03-02 14:20] VITALS: BP 129/71; PULSE 76; RESP 16; TEMP 36.8
--- NOTE | 2025-03-09 13:19 | XR_ITS ---
Examination: Biophysical profile, ultrasound Date and time of exam: March 09, 2025 1324 hours INDICATIONS: Diagnosis high risk anemia Technique: Multiple transabdominal sonographic images of the pelvis abdomen obtained. Attention is directed to the breathing movement, gross body movement, amniotic fluid volume and tone. Findings: Amniotic fluid index 8.2 cm Total biophysical profile is 8 of 8. breathing movement is 2. Gross body movement is 2. tone is 2. Qualitative amniotic fluid volume is 2 Impression: Biophysical profile is 8 of 8.
[2025-03-09 14:02] VITALS: BP 105/67; PULSE 95; RESP 16; TEMP 36.7
== END 2025-03-09 23:59 | disposition home or self-care (01) ==
LOC: S4S1 13:14
PROVIDERS: PCP Family Medicine; Referring Provider Obstetrics & Gynecology; Visit Provider Obstetrics & Gynecology
DX: O09.893 Supervision of other high risk pregnancies, third trimester (principal); Z87.59 Personal history of other complications of pregnancy, childbirth and the puerperium; O99.013 Anemia complicating pregnancy, third trimester; D64.9 Anemia, unspecified
CPT/HCPCS: 59025; 76819

== ENCOUNTER 2025-03-14 01:13 | Inpatient (IN) | payer MEDICAID, SELFPAY ==
[2025-03-14] VITALS (117 sets, daily range): BP systolic 110–138; BP diastolic 72–95; PULSE 63–109; RESP 14–99; TEMP 36.5–37.3; O2SAT 93–100; BMI 32.3
[2025-03-14] MEDS: RINGERS LACTATED 1000 ML 1,000 ML 999 ML IV (02:01)
[2025-03-14] MEDS: TERBUTALINE SULF INJ 1 MG/ML VIAL 0.25 MG SC (03:12)
[2025-03-14] MEDS: RINGERS LACTATED 1000 ML 1,000 ML 100 ML IV (03:13)
[2025-03-14 05:36] LABS: Amphetamine/Metham Scrn,Ur OB Negative (Negative); Benzoylecgonine Screen, Ur OB Negative (Negative); Opiate Screen,Urine OB Negative (Negative); THC Screen,Urine OB Negative (Negative)
[2025-03-14 09:47] LABS: Basophils # (Auto) 0.0 Thou/mm3 (0.0-0.2); Basophils % (Auto) 0 % (0-2.5); Eosinophils # (Auto) 0.1 Thou/mm3 (0.0-0.5); Eosinophils % (Auto) 1 % (0-10); Hematocrit 29.9 % (36.0-46.0); Immature Granulocytes Auto 0.08 Thou/mm3 (0.00-0.00); Lymphocytes # (Auto) 2.0 Thou/mm3 (1.0-4.8); Lymphocytes % (Auto) 16 % (10-50); Mean Corpuscular HGB Conc 29.1 g/dl (31.0-37.0); Mean Corpuscular Hemoglobin 20.9 pg (25.0-35.0); Mean Corpuscular Volume 72 fL (80-100); Monocytes # (Auto) 0.6 Thou/mm3 (0.0-0.8); Monocytes % (Auto) 5 % (0-12); Neutrophils # (Auto) 9.3 Thou/mm3 (1.8-7.7); Neutrophils % (Auto) 77 % (37-80); Nucleated Red Blood Cell # 0.00 Thou/mm3 (0.00-0.00); Nucleated Red Blood Cell % 0 /100 WBC (0); Platelet Count 294 Thou/mm3 (140-440); RDW Standard Deviation 44.9 fL (36.4-46.3); Red Blood Count 4.17 Miln/mm3 (4.00-5.20); White Blood Count 12.2 Thou/mm3 (3.6-11.0)
[2025-03-14 09:54] LABS: Hemoglobin 8.7 g/dL (12.0-16.0)
[2025-03-14] MEDS: ceFAZolin/D5W 2 GM IV 2 GM/100 ML BAG IV (09:58)
[2025-03-14] MEDS: FAMOTIDINE INJ 10 MG/ML VIAL 2 ML 20 MG IV (09:58)
[2025-03-14] MEDS: METOCLOPRAMIDE INJ 5 MG/ML VIAL 2 ML 10 MG IVP (09:58)
--- NOTE | 2025-03-14 10:10 | PD.LDHP ---
Documentation for date of: 03/14/25 OB Labor/Induct. HPI History of Present Illness Chief complaint: uterine contractions , previous 3 c sections in a 24 year old : 4 Para: 3 Term pregnancies: 1 pregnancies: 2 Living children: 3 History of Abortions: Spontaneous and Elective: 0 History of Vaginal deliveries: 0 History of sections: Yes History of : No Date of last menstrual period: 07/03/25 SÁNCHEZ: 04/09/25 Gestational Age (weeks): 36 Gestational Age (days): 3 Gestational age based on last menstrual period: -15 History of present illness: patients contractions are not responding to Procardia, iv fluids, Terbutaline and she refused further tocolysis and prefers to have the baby by repeat c section now Comments: R/B and options including surgery risks of bleeding, needing transfusion, possible injury to surrounding organs like Urinary Bladder, bowel, ureter and tubes and ovaries and even the uterus all discussed , rarely in case of uncontrollable hemmorhage need for emergency hysterectomy all discussed. She is agreeable to blood transfusion if needed. she has a Hb at 8 and will likely need it . All questions answered. History of Present Dating criteria: LMP confirmed by 2nd trimester US Adequate Care: No (late to care 19wk) Obstetrical complications: other (previous 3 c sections ) Medical complications: other Narrative: anemia prior to surgery Labs Labs: Unknown: RPR, Hepatitis B, Rubella Titre, HIV, Chlamydia, Gonorrhea, Herpes Type 1, Herpes Type 2, Group Beta Strep and Covid-19 Review of Systems Review of Systems Systems Reviewed: All systems reviewed, normal except as documented Past Medical History Surgical History SURGICAL: Positive Section Social History SOCIAL: denies any substance abuse Meds Home Medications and Allergies Allergies Allergy/AdvReac Type Severity Reaction Status Date / Time No Known Allergies Allergy Verified 03/14/25 01:39 OB Exam Physical Exam Vital signs: Temp Pulse Resp BP Pulse Ox O2 Del Method 98.5 F 87 16 121/73 97 Room Air 03/14/25 07:11 03/14/25 07:01 03/14/25 07:11 03/14/25 07:01 03/14/25 10:09 03/14/25 07:11 Narrative: patient continues to contract and plan a repeat emergency section , hopefully Low transverse and R/B and options all discussed with the patient. All questions answered . she is anemic and may need blood transfusion Alertx 3 Chest Clear , VSS stable RRR abdomen uterus c/w 36 weeks EFW is 2.7 kg cervical exam still 1 cm high , intact non tender uterus , intact membranes mild UC palpated regular /she has h/o earlier births as well Detailed Labor and Delivery Exam Dilation (cm): 1cm OB Results Labs 03/14/25 09:08 Labs: Short CBC 03/14/25 Range/Units 09:08 WBC 12.2 H (3.6-11.0) Thou/mm3 Hgb 8.7 L (12.0-16.0) g/dL Hct 29.9 L (36.0-46.0) % Plt Count 294 (140-440) Thou/mm3 Impressions Impression: 24 years , previous 3 c sections at 36.3 weeks , labor contractions not responding to tocolysis and plan an emergency repeat LTCS now . R/B and options explained to patient and will proceed
[2025-03-14 10:19] LABS: Syphilis Nonreactive (Nonreactive)
--- NOTE | 2025-03-14 12:25 | ESOP_ITS ---
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 Received surgical site infection prophylaxis. Received spinal anesthesia. Also received 1 unit of blood because her preop hemoglobin is 8. 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 Incision carried down from skin subcutaneous tissue to rectus sheath which is incised transversely from underlying muscles by sharp and blunt dissection. Peritoneal cavity entered without any trauma, incision made in the lower uterine segment and baby delivered in cephalic, after attempting with fundal pressure and extraction Kiwi vacuum with 1 pull was used and the baby was delivered within a minute. Without any pop offs and with one pull only . KiVi pressure was in the green zone. Placenta was anterior adherent was removed manually. A dry lap used to clean out the uterine cavity. Uterus exteriorized and closed in a wet lap. Uterine incision closed in 2 layers with 0 Monocryl. Hemostasis is good Uterus is replaced back in the uterine cavity tubes and ovaries look normal [place] and paracolic gutters are clean dry of any remaining blood and debris Sponge count is correct, uterine incision is hemostatic Then abdominal closure done with 2-0 Vicryl to approximate the peritoneum and muscles 0 Monocryl to approximate the rectus fascia. Subcutaneous layer was irrigated approximated with 0 plain catgut Subcuticular layer and skin approximated with 4-0 Monocryl Mesh tape dressing with the glue was applied followed by ABD dressing. EBL is 600 cc Patient delivered a liveborn baby with a good cry Apgars 8 and 9 Patient was sent to PACU in stable condition , counts are correct . Fluids: crystalloid and blood Estimated blood loss (ml): 600 Findings: Vertex presentation, clear amniotic fluid, lots of scarring in the abdominal wall Complications: none Narrative: see procedure Diagnosis Discharge Diagnosis (1) Previous section: Status: Acute (2) delivery delivered: Status: Acute (3) Anemia affecting fourth : Status: Acute Problem List Completed Was Problem List Reviewed/Reconciled?: Yes
[2025-03-14] MEDS: OXYTOCIN in NS 20 units 20 UNIT/1,000 ML BAG 125 UNIT IV ×2 (13:41→21:16)
[2025-03-14] MEDS: KETOROLAC INJ 30 MG/ML VIAL IVP ×2 (16:17→22:35)
[2025-03-15] VITALS: BP 123/76; PULSE 80; RESP 17; TEMP 36.3; O2SAT 97
[2025-03-15 04:00] VITALS: BP 115/71; PULSE 76; RESP 18; TEMP 36.9; O2SAT 95
[2025-03-15] MEDS: IBUPROFEN TAB 400 MG TABLET 800 MG PO ×2 (05:50→14:27)
[2025-03-15] MEDS: RINGERS LACTATED 1000 ML 1,000 ML 100 ML IV (05:50)
[2025-03-15 07:25] VITALS: BP 133/81; PULSE 87; RESP 16; TEMP 36.9; O2SAT 95
[2025-03-15 08:08] LABS: Basophils # (Auto) 0.0 Thou/mm3 (0.0-0.2); Basophils % (Auto) 0 % (0-2.5); Eosinophils # (Auto) 0.1 Thou/mm3 (0.0-0.5); Eosinophils % (Auto) 1 % (0-10); Hematocrit 28.6 % (36.0-46.0); Hemoglobin 8.8 g/dL (12.0-16.0); Immature Granulocytes Auto 0.06 Thou/mm3 (0.00-0.00); Lymphocytes # (Auto) 1.2 Thou/mm3 (1.0-4.8); Lymphocytes % (Auto) 12 % (10-50); Mean Corpuscular HGB Conc 30.8 g/dl (31.0-37.0); Mean Corpuscular Hemoglobin 22.4 pg (25.0-35.0); Mean Corpuscular Volume 73 fL (80-100); Monocytes # (Auto) 0.7 Thou/mm3 (0.0-0.8); Monocytes % (Auto) 7 % (0-12); Neutrophils # (Auto) 7.8 Thou/mm3 (1.8-7.7); Neutrophils % (Auto) 78 % (37-80); Nucleated Red Blood Cell # 0.00 Thou/mm3 (0.00-0.00); Nucleated Red Blood Cell % 0 /100 WBC (0); Platelet Count 249 Thou/mm3 (140-440); RDW Standard Deviation 47.8 fL (36.4-46.3); Red Blood Count 3.92 Miln/mm3 (4.00-5.20); White Blood Count 9.9 Thou/mm3 (3.6-11.0)
[2025-03-15 11:07] VITALS: BP 116/72; PULSE 68; RESP 16; TEMP 36.7; O2SAT 96
[2025-03-15 16:34] VITALS: BP 119/75; PULSE 90; RESP 18; TEMP 36.8; O2SAT 97
[2025-03-15] MEDS: HYDROcodone/APAP 5/325 TABLET 1 TAB PO ×2 (16:42→21:50)
[2025-03-15 20:00] VITALS: BP 113/65; PULSE 89; RESP 16; TEMP 36.7; O2SAT 96
[2025-03-16] MEDS: HYDROcodone/APAP 5/325 TABLET 2 TAB PO ×2 (02:23→10:02)
[2025-03-16 04:00] VITALS: BP 123/81; PULSE 75; RESP 18; TEMP 36.6; O2SAT 95
[2025-03-16 07:00] VITALS: BP 115/67; PULSE 84; RESP 16; TEMP 36.4; O2SAT 96
--- NOTE | 2025-03-16 07:09 | PD.LDPPPRG ---
Subjective Subjective Interval history: Patient is a 24-year-old -2-1-3 status post repeat at 36+ weeks by Dr. Serna. She is resting comfortably today. She is postoperative day #1 she came in anemic at 8 and got a unit of blood. Her hemoglobin stable today at 8.7 postop Exam Vital Signs Temp Pulse Resp BP Pulse Ox O2 Del Method 97.8 F 75 18 123/81 95 Room Air 03/16/25 04:00 03/16/25 04:00 03/16/25 04:00 03/16/25 04:00 03/16/25 04:00 03/16/25 04:00 Narrative Exam Patient is resting comfortably in bed fundus is firm dressing clean dry and intact Objective Labs 03/15/25 07:05 Labs: Laboratory Results - last 24 hr 03/15/25 07:05 WBC 9.9 RBC 3.92 L Hgb 8.8 L Hct 28.6 L MCV 73 L MCH 22.4 L MCHC 30.8 L RDW Std Deviation 47.8 H Plt Count 249 D Neut % (Auto) 78 Lymph % (Auto) 12 [place] % (Auto) 7 Eos % (Auto) 1 Baso % (Auto) 0 Neut # (Auto) 7.8 H Lymph # (Auto) 1.2 [place] # (Auto) 0.7 Eos # (Auto) 0.1 Baso # (Auto) 0.0 Immature Gran # (Auto) 0.06 H Absolute Nucleated RBC 0.00 Immature Gran % 1 H Nucleated RBC % 0 Assessment & Plan Problem List (1) Previous section: Problem details: Postop day 1 repeat at 36 weeks Status: Acute (2) delivery delivered: Problem details: Routine postop orders Status: Acute (3) Anemia affecting fourth : Problem details: Status post 1 unit of blood preoperatively. Hemoglobin maintaining postop Status: Acute Time Spent With Patient Time: Total time spent is greater than 50% in coordination of care (as documented) at patient's floor/unit and/or counseling patient: Time with patient: less than 15 minutes
--- NOTE | 2025-03-16 11:07 | PD.LDPPPRG ---
Subjective Subjective Interval history: Delivery type: Patient doing well this morning. No acute complaints. Ambulating, tolerating p.o. and voiding without difficulty. HTN/Pre-Eclampsia screen: No chest pain, shortness of breath, headache, visual changes, epigastric or right upper quadrant pain. Breast-feeding, lochia diminishing. Bowel: Flatus+/ BM+ Exam Vital Signs Temp Pulse Resp BP Pulse Ox O2 Del Method 97.5 F 84 16 115/67 96 Room Air 03/16/25 07:00 03/16/25 07:00 03/16/25 07:00 03/16/25 07:00 03/16/25 07:00 03/16/25 07:00 Constitutional Constitutional: no acute distress Routine HEENT Exam Head: Present normocephalic and atraumatic Eye: Present EOMI and PERRL ENT: Present mucous membranes moist Routine Neck Exam Neck: Present supple and trachea midline Routine Respiratory Exam Respiratory: Present chest non-tender, lungs clear, normal breath sounds and no resp distress Routine Cardiovascular Exam Cardiovascular: Present RRR Routine Abdominal Exam Abdominal: Present soft and normoactive bowel sounds Routine Extremities Exam Extremities: Present full ROM Routine Skin Exam Skin: Present intact, dry and warm Routine Neurological Exam Neurological: Present alert, oriented X3 and CN II-XII intact Routine Psychiatric Exam Psychiatric: Present normal affect and normal thought process Objective Labs 03/15/25 07:05 Assessment & Plan Problem List (1) Previous section: Status: Acute (2) delivery delivered: Status: Acute Assessment and plan: PPD/POD#2 1. Continue routine care 2. Transition to PO meds. 3. Encourage to ambulate/ breast-feed 4. Anticipate discharge home today. (3) Anemia affecting fourth : Status: Acute Time Spent With Patient Time: Total time spent is greater than 50% in coordination of care (as documented) at patient's floor/unit and/or counseling patient:
--- NOTE | 2025-03-16 11:08 | PD.LDDS ---
DS: Providers Provider Date of admission: 03/14/25 08:05 Primary care physician: Physician No Primary/Family Admitting Provider: Sagrario Serna MD Attending Provider on Admission: Bryan Pelaez MD Consults: 03/14/25 12:50 Referral Routine Comment: Attending Provider on DC: Bryan Pelaez MD Discharging Provider: Bryan Pelaez MD DS: Diagnosis Discharge Diagnosis (1) Previous section: Status: Acute (2) delivery delivered: Status: Acute Problem List Completed Was Problem List Reviewed/Reconciled?: Yes Summary/Hosp Course Brief History: patients contractions are not responding to Procardia, iv fluids, Terbutaline and she refused further tocolysis and prefers to have the baby by repeat c section now Peripartum Data Delivery Method: Low Transverse Episiotomy Description: None Procedures: Procedures Operation Date: 03/14/25 10:48 Actual Procedure Side Surgeon p in OB Not Applicable Sagrario Serna MD Time Spent with Patient Time attestation: Total time spent providing and/or coordinating discharge services: Exam Vital Signs Temp Pulse Resp BP Pulse Ox O2 Del Method 97.5 F 84 16 115/67 96 Room Air 03/16/25 07:00 03/16/25 07:00 03/16/25 07:00 03/16/25 07:00 03/16/25 07:00 03/16/25 07:00 Discharge Plan Plan Patient Disposition: HOME (Self Care) Patient condition on transfer: Stable Prescriptions/Referrals Prescriptions/Med Rec: New hydrocodone-acetaminophen 5-325 mg Tablet 1 tab PO Q6HR MDD 4 PRN (Reason: Patient rated pain 9 to 10) 5 Days Qty: 20 0RF Continued Gummies 400 mcg-35 mg- 25 mg-5 mg tablet,chewable 1 tab PO QDAY 90 Days Qty: 90 4RF ferrous sulfate 325 mg (65 mg iron) tablet 325 mg PO BID 90 Days Qty: 180 2RF Referrals: Bryan Pelaez MD [Physician] - No Primary/Family,Physician [Primary Care Provider] - Patient/Caregiver Discharge Instructions Education Materials: Expressing Your Milk, Storing Expressed Milk, : Caring for Yourself, C Section Dc Print Language: Amharic Stand Alone Forms: Kat Award Info., Patient Portal Info Letter, DC from Surgery Discharge Order Discharge Orders: Discharge (Routine); Ordered 03/16/25 Ordered By: Bryan Pealez Planned Discharge Date 03/16/25
[2025-03-16 12:25] VITALS: BP 118/77; PULSE 80; RESP 16; TEMP 36.5; O2SAT 97
[2025-03-16] MEDS: IBUPROFEN TAB 400 MG TABLET 800 MG PO (12:39)
--- NOTE | 2025-03-16 14:23 | PC.NURSE ---
1420 OBI OWEN AT NURSES STATION. REPORTED TO RN THAT PATIENT HAS BEEN SEEN AND IS CLEARED TO DC HOME.
--- NOTE | 2025-03-16 18:30 | PC.CC ---
Pt is a 24 yo female who delivered her infant via at 36 weeks. FOB was present named Mery Monroy. ASW introduced myself and reason for the referral as it was reported by the assigned RN the pt was late to care at 19 weeks. Pt reported she was late to care because she could not find a OB at [facility], where she would usually go for OB and care. Pt reported that as soon as she was connected to Dr. Freedman at the [facility], she was consistent with care. Pt stated she is breast feeding the and plans to do so for as long as she can. Pt reported she was ready for the and has all she needs at home. Pt stated the infant was not on lights, but due to the infants labs, the infant is at risk for jaundice. Pt is aware of the medical concern for the and plans on seeing the infants Peds as soon as she is d/c from the hospital. Pt reports she has strong support from family. Pt reports she receives WIC, Food stamps $907 and pugh aid $1500 monthly. ASW explained the risks of late to care and the pt understood. Pt was receptive and cooperative. ASW provided community resources to [facility], [facility] and food pantries if needed. Pt was receptive and stated she would look into resources from [facility]. At this time, there are no concerns with SS and no CWS report will be made.
== END 2025-03-16 14:55 | disposition home or self-care (01) | DRG 540 ==
LOC: S4SX 08:50 → S4NX 10:51
PROVIDERS: Admitting Provider Obstetrics & Gynecology; Visit Provider Obstetrics & Gynecology
PROC: 10D00Z1 Extraction of Products of Conception, Low, Open Approach (ICD-10-PCS; CPT 59514; principal; 2025-03-14 07:00)
DX: O60.14X0 Preterm labor third trimester with preterm delivery third trimester, not applicable or unspecified (principal); O34.211 Maternal care for low transverse scar from previous cesarean delivery; O99.02 Anemia complicating childbirth; Z3A.36 36 weeks gestation of pregnancy; Z37.0 Single live birth; Z53.29 Procedure and treatment not carried out because of patient's decision for other reasons
CPT/HCPCS: 36415; 59025; 80307; 85025; 86780; 86850; 86900; 86901; 86923; A4314; A4649; J0689; J1885; J2175; J2210; J2274; J2590; J2765; J3010; J3105; J3490; J7120; P9016; A9270; J2270